=== PATIENT | male | born 1965 ===

== ENCOUNTER 2018-05-14 11:07 | Inpatient (IN) | payer MEDICAID, OTHER ==
--- NOTE | 2018-05-14 12:04 | C.PDOC ---
History Of Present Illness 52 y/o male with no known medical hx c/o right ear pain x 5 days with loss of hearing. pt has drainage from ear, initially bloody, now clear fluids. pr denies any trauma to ear. pt felt febrile earlier in the week, no fever now. pt taking an antibiotic (name unk) at home for a few days with no improvement. Time Seen by Provider: 05/14/18 11:18 Chief Complaint (Nursing): ENT Problem History Per: Patient History/Exam Limitations: None Onset/Duration Of Symptoms: Days (5) Current Symptoms Are (Timing): Worse Quality (Ear): Pain W/Touch, Discharge Quality (Mouth/Throat): denies: Tenderness, Swelling, Redness Severity: Moderate Anticoagulant/Antiplatlet Use?: No Past Medical History Reviewed: Historical Data, Nursing Documentation, Vital Signs Vital Signs: Last Vital Signs Temp 98 F 05/14/18 15:45 Pulse 54 L 05/14/18 15:45 Resp 18 05/14/18 15:45 BP 122/81 05/14/18 15:45 Pulse Ox 100 05/14/18 17:32 Family History: States: Unknown Family Hx - Social History Hx Alcohol Use: No Hx Substance Use: No - Immunization History Hx Tetanus Toxoid Vaccination: No Hx Influenza Vaccination: No Hx Pneumococcal Vaccination: No Review Of Systems Constitutional: Positive for: Fever (tactile) Eyes: Negative for: Pain ENT: Positive for: Ear Pain, Ear Discharge. Negative for: Nose Pain, Mouth Pain , Throat Pain Respiratory: Negative for: Cough, Shortness of Breath Skin: Negative for: Rash Neurological: Negative for: Weakness, Numbness Physical Exam - Physical Exam Appears: Non-toxic, No Acute Distress, Other (uncomfortable) Skin: Warm, Dry Head: Atraumatic, Normacephalic, No Tenderness (no mastoid tenderness) Ear(s): Left: Normal, Right: Other (erythema medial canal, clear discharge in canal, ?tm perforated, fluid seen on tm) Nose: Normal, No Discharge Oral Mucosa: Moist Tongue: Normal Appearing Lips: Normal Appearing Throat: No Erythema, No Exudate Neck: Supple Cardiovascular: Rhythm Regular, No Murmur Respiratory: No Decreased Breath Sounds ED Course And Treatment - Laboratory Results Result Diagrams: 05/14/18 12:19 05/14/18 12:19 O2 Sat by Pulse Oximetry: 100 - CT Scan/US temporal bone Other Rad Studies (CT/US): Read By Radiologist, Radiology Report Reviewed CT/US Interpretation: Right otomastoiditis without definite cholesteatoma appreciated. The right ossicular chain is intact. Limited coalescence of a few air cells within the right mastoid air cell complex is suggested superoposteriorly. The left temporal bone CT sections appear normal throughout. Medical Decision Making Medical Decision Makin y.o male with right ear pain, hearing loss, drainage x 5 days. message left for Dr Billings. discussed with Dr Billings; requesting temporal bone ct with and without contrast; will contact him when resulted. [address] Billings, pt to be admitted to medicine, and go to or tomorrow for tympanostomy. discussed with Dr Jacobs. Disposition Discussed With : Estiven Billings Doctor Will See Patient In The: Hospital Counseled Patient/Family Regarding: Studies Performed, Diagnosis, Need For Followup - Disposition Disposition: HOSPITALIZED Disposition Time: 17:27 Condition: STABLE - Clinical Impression Clinical Impression: Mastoiditis of right side, Otitis media of right ear
[2018-05-14 12:27] LABS: BASO # 0.1 K/uL (0.0-0.2); BASO % 0.9 % (0.0-2.0); EOS # 0.2 K/uL (0.0-0.7); EOS % 2.6 % (0.0-4.0); HEMOGLOBIN 13.9 g/dL (12.0-18.0); LYMPH # 2.5 K/uL (1.0-4.3); MEAN CELL VOLUME 90.9 fL (80.0-94.0); MEAN CORPUSCULAR HEMOGLOBIN 30.4 pg (27.0-31.0); MEAN CORPUSCULAR HGB CONC 33.4 g/dL (33.0-37.0); MEAN PLATELET VOLUME 7.8 fL (7.2-11.7); MONO # 0.9 K/uL (0.0-0.8); MONO % 9.4 % (0.0-10.0); NEUT # 5.3 K/uL (1.8-7.0); NEUT % 59.1 % (50.0-75.0); NRBC % 0.1 % (0.0-2.0); RBC 4.58 Mil/uL (4.40-5.90); RED CELL DISTRIBUTION WIDTH 14.1 % (11.5-14.5)
[2018-05-14 12:43] LABS: BLOOD UREA NITROGEN 16 mg/dL (9-20); CALCIUM 9.4 mg/dl (8.6-10.4); GFR AFRICAN-AMERICAN > 60; GFR NON-AFRICAN AMERICAN > 60
[2018-05-14] MEDS ORDERED: Iodixanol 320 MG/ML 100 ML BOTTLE IV ONE (13:04)
--- NOTE | 2018-05-14 14:22 | CT ---
PROCEDURE: CT OF THE TEMPORAL BONES WITHOUT CONTRAST HISTORY: right ear pain, drainage. loss of hearing COMPARISON: None available. TECHNIQUE: High resolution axial images of the temporal bones were obtained. Coronal and sagittal reformats were generated. Radiation dose: Total exam DLP = Visipaque 320, 100 cc mGy-cm. This CT exam was performed using one or more of the following dose reduction techniques: Automated exposure control, adjustment of the mA and/or kV according to patient size, and/or use of iterative reconstruction technique. FINDINGS: RIGHT TEMPORAL BONE: RIGHT MIDDLE EAR: There is near complete opacification of the middle ear cavity with the ossicular chain appearing intact nevertheless. The scutum is not eroded and cholesteatoma is not favored although fluid extends into the attic and through the added wrist at antrum and in to the mastoid air cell complex completely. Erosion of some of the right mastoid air cells is seen posterior superiorly. RIGHT INNER EAR: Cochlea: Normal. Semicircular canals: Normal. RIGHT MASTOID AIR CELLS: See middle year discussion above. RIGHT INTERNAL AUDITORY CANAL: Normal. RIGHT EXTERNAL AUDITORY CANAL: Normal. RIGHT VESTIBULAR AND COCHLEAR AQUEDUCT: Normal. OTHER FINDINGS: No definitive suspicious contrast enhancement appreciable. LEFT TEMPORAL BONE: LEFT MIDDLE EAR: Normal. LEFT INNER EAR: Cochlea: Normal. Semicircular canals: Normal. LEFT MASTOID AIR CELLS: Normal. LEFT INTERNAL AUDITORY CANAL: Normal. LEFT EXTERNAL AUDITORY CANAL: Normal. LEFT VESTIBULAR AND COCHLEAR AQUEDUCTS: Normal. OTHER FINDINGS: No suspicious contrast enhancement appreciable. IMPRESSION: Right otomastoiditis without definite cholesteatoma appreciated. The right ossicular chain is intact. Limited coalescence of a few air cells within the right mastoid air cell complex is suggested superoposteriorly. The left temporal bone CT sections appear normal throughout.
[2018-05-14] MEDS ORDERED: Clindamycin 600mg/50ml D5W 600 MG/50 ML VIAL IVPB SCH (14:45)
[2018-05-14] MEDS ORDERED: Clindamycin 600mg/50ml NS 600 MG/50 ML BAG IVPB ONE (14:51)
[2018-05-14] MEDS ORDERED: Clindamycin 600mg/50ml D5W 600 MG/50 ML VIAL IVPB STA (15:04)
[2018-05-14] MEDS ORDERED: metroNIDAZOLE IV 500 mg/100 ml 500 MG/100 ML BAG IVPB STA (17:26)
[2018-05-14] MEDS ORDERED: metroNIDAZOLE IV 500 mg/100 ml 500 MG/100 ML BAG ONE (17:56)
--- NOTE | 2018-05-14 18:04 | RAD ---
HISTORY: pre-op med clearance COMPARISON: None TECHNIQUE: Chest PA and lateral FINDINGS: LUNGS: No focal consolidation is seen. Bronchiectatic changes and scarring noted in the right lung apex. Mild right basilar atelectasis. PLEURA: Small right pleural effusion. CARDIOVASCULAR: Heart size is within normal limits.Atherosclerotic calcifications noted of the aorta. OSSEOUS STRUCTURES: Visualized osseous structures are unremarkable. VISUALIZED UPPER ABDOMEN: Unremarkable. OTHER FINDINGS: None. IMPRESSION: Mild right basilar atelectasis. Small right pleural effusion.
[2018-05-14 18:08] LABS: INR 1.2; PROTHROMBIN TIME 13.3 SECONDS (9.7-12.2)
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
[2018-05-14] MEDS ORDERED: Acetaminophen-Codeine 300/30 mg Tab PO PRN (18:30)
[2018-05-14] MEDS: Saccharomyces Boulardi 250 mg Cap PO SCH (20:11)
[2018-05-14] MEDS: Ciprofloxacin 400mg/200ml D5W 400 MG/200 ML BAG IVPB SCH (20:52)
--- NOTE | 2018-05-15 04:14 | CON ---
DATE: 05/14/2018 REASON FOR CONSULTATION: Mastoiditis, right. REQUESTING PHYSICIAN: Emergency room. HISTORY OF PRESENT ILLNESS: This is a 52-year-old male who for the past 5 days has been having right ear pain with hearing loss, constant, moderate in intensity. The patient also reports the drainage in the ear with some bleeding which happened 4 days ago. PAST MEDICAL HISTORY: As noted in the chart by me. MEDICATIONS: As noted in the chart by me. ALLERGIES: PENICILLIN. PHYSICAL EXAMINATION: HEAD: Atraumatic, normocephalic. FACE: Good facial movements bilaterally. CONSTITUTIONAL: Well fed, well nourished. COMMUNICATION: Communicates well and appropriately. EXTERNAL NOSE AND EARS: No masses. No lesions. No erythema. No edema. INTERNAL NOSE: Deviated septum. No masses. No lesions. No erythema. No edema. ORAL CAVITY AND OROPHARYNX: No masses. No lesions. No erythema. No edema. LIPS AND GUMS: No masses. No lesions. No erythema. No edema. EARS: There is a discharge in the right ear canal. The TM cannot be visualized. No canal edema or erythema noted. NECK: Supple. THYROID: No thyromegaly. No goiter. LYMPH NODES: No lymphadenopathy of the neck. LABORATORY DATA: CAT scan done was reviewed by me, the reading says that the patient has mastoiditis, which is coalescent. ASSESSMENT: Deviated septum and mastoiditis, acute, coalescent. PLAN: I spoke to Dr. gonzalez at [facility] in [place]. We decided that it will be best to admit the patient; start him on IV antibiotics, clindamycin and Flagyl; and he will be n.p.o. past midnight. I will do a right myringotomy tube tomorrow morning to drain the ear. On Thursday, we will reevaluate. If the patient still has pain that is not improving, then I will speak with Dr. Gonzalez again and consider transferring him for mastoidectomy. Estiven Billings MD MTDMercy
[2018-05-15 07:10] LABS: BASO # 0.1 K/uL (0.0-0.2); BASO % 1.5 % (0.0-2.0); EOS # 0.2 K/uL (0.0-0.7); EOS % 3.4 % (0.0-4.0); HEMOGLOBIN 13.7 g/dL (12.0-18.0); LYMPH # 2.2 K/uL (1.0-4.3); LYMPH % 29.9 % (20.0-40.0); MEAN CELL VOLUME 90.5 fL (80.0-94.0); MEAN CORPUSCULAR HGB CONC 34.2 g/dL (33.0-37.0); MEAN PLATELET VOLUME 8.1 fL (7.2-11.7); MONO # 0.6 K/uL (0.0-0.8); MONO % 7.9 % (0.0-10.0); NEUT # 4.2 K/uL (1.8-7.0); NEUT % 57.3 % (50.0-75.0); RBC 4.43 Mil/uL (4.40-5.90); RED CELL DISTRIBUTION WIDTH 14.3 % (11.5-14.5); WHITE BLOOD COUNT 7.3 K/uL (4.8-10.8)
[2018-05-15] MEDS ORDERED: Ofloxacin 0.3% Ophth Soln ONE (07:30)
[2018-05-15 07:31] LABS: BLOOD UREA NITROGEN 15 mg/dL (9-20); CALCIUM 9.1 mg/dl (8.6-10.4); GFR AFRICAN-AMERICAN > 60; GFR NON-AFRICAN AMERICAN > 60
[2018-05-15] MEDS ORDERED: Oxymetazoline 0.05% Nasal Spray (30 ml) NS ONE (07:32)
[2018-05-15] MEDS ORDERED: Propofol 10 mg/ml Inj (20 ML) ONE (07:39)
[2018-05-15] MEDS: Ciprofloxacin 400mg/200ml D5W 400 MG/200 ML BAG IVPB SCH ×3 (08:43→19:41)
[2018-05-15] MEDS: Saccharomyces Boulardi 250 mg Cap PO SCH ×2 (09:44→17:07)
--- NOTE | 2018-05-15 14:32 | CP.PCM.PN ---
Subjective - Date & Time of Evaluation Date of Evaluation: 05/15/18 Time of Evaluation: 07:00 - Subjective Subjective: PGY2- Progress Note for Dr. Jacobs Patient seen and examined at bedside and in no acute distress. Patient is s/p myringotomy tube placement by Dr. Billings. Patient says he is not having any pain in the ear. Patient does admit to a lot of drainage from the ear. Patient denies any headache, shortness of breath, chest pain, abdominal pain, nausea, vomiting, constipation, or diarrhea. Objective - Vital Signs/Intake and Output Vital Signs (last 24 hours): Temp Pulse Resp BP Pulse Ox 98.8 F 56 L 15 109/76 98 05/15/18 08:45 05/15/18 08:45 05/15/18 08:45 05/15/18 08:45 05/15/18 10:06 Intake and Output: 05/15/18 05/15/18 06:59 18:59 Intake Total 600 150 Balance 600 150 - Medications Medications: Current Medications Acetaminophen (Tylenol 325mg Tab) 650 mg PO Q12H PRN PRN Reason: Fever >100.4 F Acetaminophen/Codeine Phosphate (Tylenol/Codeine 300 Mg/30 Mg) 1 ea PO Q6H PRN PRN Reason: Pain, severe (8-10) Ciprofloxacin (Cipro 400mg/200ml Dsw) 400 mg in 200 mls @ 133 mls/hr IVPB Q12H BUBBA PRN Reason: Protocol Last Admin: 05/15/18 09:46 Dose: 133 mls/hr Clindamycin Phosphate 900 mg/ (Sodium Chloride) 106 mls @ 106 mls/hr IVPB Q8H BUBBA PRN Reason: Protocol Last Admin: 05/15/18 14:11 Dose: 106 mls/hr Pneumococcal Polyvalent Vaccine (Pneumovax 23 Vaccine) 0.5 ml IM .ONCE ONE Stop: 05/16/18 10:01 Saccharomyces Boulardii (Florastor) 250 mg PO BID [facility] Last Admin: 05/15/18 09:44 Dose: 250 mg - Labs Labs: 05/15/18 07:00 05/15/18 07:00 PT 13.3 SECONDS (9.7-12.2) H 05/14/18 17:53 INR 1.2 05/14/18 17:53 APTT 34 SECONDS (21-34) 05/14/18 17:53 - Constitutional Appears: Non-toxic, No Acute Distress - Head Exam Head Exam: ATRAUMATIC, NORMAL INSPECTION, NORMOCEPHALIC - Eye Exam Eye Exam: EOMI, Normal appearance - ENT Exam ENT Exam: Mucous Membranes Moist Additional comments: ear discharge - Respiratory Exam Respiratory Exam: Clear to Ausculation Bilateral, NORMAL BREATHING PATTERN - Cardiovascular Exam Cardiovascular Exam: REGULAR RHYTHM, RRR, +S1, +S2 - GI/Abdominal Exam GI & Abdominal Exam: Soft, Normal Bowel Sounds. absent: Tenderness - Extremities Exam Extremities Exam: Normal Inspection. absent: Pedal Edema, Tenderness - Neurological Exam Neurological Exam: Alert, Awake, Oriented x3 - Psychiatric Exam Psychiatric exam: Normal Affect, Normal Mood - Skin Skin Exam: Intact, Normal Color, Warm Assessment and Plan - Assessment and Plan (Free Text) Assessment: (1) Mastoiditis of right side Assessment and Plan: ENT consult, Dr Billings * s/p tympanostomy 05/15 ID consult, Dr Mathews - need help with tailoring abx discharge meds Imaging: CT internal auditory canal: * Right otomastoiditis without definite cholesteatoma appreciated. The right ossicular chain is intact. Limited coalescence of a few air cells within the right mastoid air cell complex is suggested superoposteriorly. The left temporal bone CT sections appear normal throughout. CXR pre-op: * Mild right basilar atelectasis. Small right pleural effusion. Meds: Tylenol 650mg q12h prn for fever Tylenol/codeine 1 tab po q6h prn for severe pain Clindamycin 600mg IVPB q8h Cipro 400mg q12h Florastor 250mg po bid Status: Acute (2) Otitis media of right ear Assessment and Plan: See plan for otomastoiditis above Status: Acute Priority: High (3) Prophylactic measure Assessment and Plan: SCDs GI prophylaxis not indicated Status: Acute Priority: Low
--- NOTE | 2018-05-15 19:37 | OP ---
PROCEDURE DATE: 05/15/2018 PREOPERATIVE DIAGNOSIS: Right mastoiditis. POSTOPERATIVE DIAGNOSIS: Right mastoiditis. PROCEDURE: Right myringotomy with tubes. SIGNIFICANT FINDINGS: Fluid noted behind the TM. DESCRIPTION OF PROCEDURE: The patient was brought into the room, placed in supine position. Anesthesia was initiated through facemask. The head was turned. The patient was draped in the usual manner. The right ear was brought into view using operative microscope and ear speculum. Radial incision was made in the anterior inferior quadrant of the TM. Fluid was noted behind the TM and suctioned out and sent for culture. Tube was placed. Floxin was placed. The patient was taken off the anesthesia and taken to the recovery room in stable manner. Estiven Billings MD MTDD
[2018-05-16] MEDS: Ciprofloxacin 400mg/200ml D5W 400 MG/200 ML BAG IVPB SCH ×2 (07:54→19:39)
[2018-05-16 08:10] LABS: BASO # 0.1 K/uL (0.0-0.2); BASO % 0.7 % (0.0-2.0); EOS # 0.2 K/uL (0.0-0.7); EOS % 3.1 % (0.0-4.0); HEMOGLOBIN 14.1 g/dL (12.0-18.0); LYMPH # 1.9 K/uL (1.0-4.3); LYMPH % 24.7 % (20.0-40.0); MEAN CELL VOLUME 90.3 fL (80.0-94.0); MEAN CORPUSCULAR HEMOGLOBIN 30.3 pg (27.0-31.0); MEAN CORPUSCULAR HGB CONC 33.6 g/dL (33.0-37.0); MEAN PLATELET VOLUME 8.2 fL (7.2-11.7); MONO # 0.5 K/uL (0.0-0.8); MONO % 6.7 % (0.0-10.0); NEUT # 5.1 K/uL (1.8-7.0); NEUT % 64.8 % (50.0-75.0); RBC 4.66 Mil/uL (4.40-5.90); RED CELL DISTRIBUTION WIDTH 14.1 % (11.5-14.5); WHITE BLOOD COUNT 7.9 K/uL (4.8-10.8)
[2018-05-16 08:33] LABS: BLOOD UREA NITROGEN 14 mg/dL (9-20); CALCIUM 9.3 mg/dl (8.6-10.4); GFR AFRICAN-AMERICAN > 60; GFR NON-AFRICAN AMERICAN > 60
[2018-05-16 08:36] VITALS: RESP 20
[2018-05-16] MEDS: Saccharomyces Boulardi 250 mg Cap PO SCH ×2 (09:58→17:15)
[2018-05-16] MEDS ORDERED: Pneumococcal 23-Valent Vaccine IM ONE (10:00)
--- NOTE | 2018-05-16 13:47 | CP.PCM.CON ---
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 Patient stated he's had right sided ear infections in the past, especially in his youth, which self-resolved or resolved with abx. He said 5 days ago he woke up with sharp pain and later that day he noticed some clear liquid draining from his right ear. The following day he noticed a small amount of blood. The pain has become progressively worse now 10/10. He also said he had decreased hearing in the right ear and tinnitus. Denied dizziness, disequilibrium, n/v, neck pain, eye abnormalities, mouth pain. ID CONSULTED FOR ANTIBIOTIC MANAGEMENT pT IS S/P MYRINGOTOMY WITH TUBE PLACEMENT - DENIES FEVER OR PAIN PMHx: denies PSHx: denies Allergies: Patient stated he was told by his parents he has a PCN allergy but he has never actually taken PCN thus cannot confirm (he stated he probably does not have a PCN allergy) Home Meds: none FamHx: denies SocialHx: non-smoker, never smoked, social alcohol use, lives with girlfriend, currently not working, no illicit drugs Review of Systems - Review of Systems All systems: reviewed and no additional remarkable complaints except - Constitutional Constitutional: As Per HPI - EENT Eyes: absent: As Per HPI, Blind Spots, Blurred Vision, Change in Vision, Decreased Night Vision, Diplopia, Discharge, Dry Eye, Exophthalmos, Floaters, Irritation, Itchy Eyes, Loss of Peripheral Vision, Pain, Photophobia, Requires Corrective Lenses, Sees Flashes, Spots in Vision, Tunnel Vision, Other Visual Disturbances, Loss of Vision, Other Ears: As Per HPI Nose/Mouth/Throat: absent: As Per HPI, Epistaxis, Nasal Congestion, Nasal Discharge, Nasal Obstruction, Nasal Trauma, Nose Pain, Post Nasal Drip, Sinus Pain, Sinus Pressure, Bleeding Gums, Change in Voice, Dental Pain, Dry Mouth, Dysphagia, Halitosis, Hoarsness, Lip Swelling, Mouth Lesions, Mouth Pain, Odynophagia, Sore Throat, Throat Swelling, Tongue Swelling, Facial Pain, Neck Pain, Neck Mass, Other - Cardiovascular Cardiovascular: absent: As Per HPI, Acrocyanosis, Chest Pain, Chest Pain at Rest , Chest Pain with Activity, Claudication, Diaphoresis, Dyspnea, Dyspnea on Exertion, Edema, Irregular Heart Rhythm, Pain Radiating to Arm/Neck/Jaw, Leg Edema, Leg Ulcers, Lightheadedness, Orthopnea, Palpitations, Paroxysmal Nocturnal Dyspnea, Pedal Edema, Radiating Pain, Rapid Heart Rate, Slow Heart Rate, Syncope, Other - Respiratory Respiratory: absent: As Per HPI, Cough, Dyspnea, Hemoptysis, Dyspnea on Exertion , Wheezing, Snoring, Stridor, Pain on Inspiration, Chest Congestion, Excessive Mucous Production, Change in Mucous Color, Pain with Coughing, Other - Gastrointestinal Gastrointestinal: absent: As Per HPI, Abdominal Pain, Belching, Bloating, Change in Bowel Habits, Change in Stool Character, Coffee Ground Emesis, Constipation, Cramping, Diarrhea, Dyspepsia, Dysphagia, Early Satiety, Excessive Flatus, Fecal Incontinence, Heartburn, Hematemesis, Hematochezia, Loose Stools, Melena, Nausea, Odynophagia, Temesmus, Vomiting, Other - Genitourinary Genitourinary: absent: As Per HPI, Change in Urinary Stream, Difficulty Urinating, Dysuria, Flank Pain, Hematuria, Pyuria, Nocturia, Urinary Incontinence, Urinary Frequency, Urinary Hesitance, Urinary Urgency, Voiding Freq/Small Amts, Freq UTI, Hx Renal/Bladder Calculi, Hx /Renal Surgery, Bladder Distension, Other - Musculoskeletal Musculoskeletal: absent: As Per HPI, Abnormal Gait, Arthralgias, Atrophy, Back Pain, Deformity, Joint Swelling, Limited Range of Motion, Loss of Height, Muscle Cramps, Muscle Weakness, Myalgias, Neck Pain, Numbness, Radiating Pain into Limb, Stiffness, Tingling, Other - Neurological Neurological: absent: As Per HPI, Abnormal Gait, Abnormal Hearing, Abnormal Movements, Abnormal Speech, Behavioral Changes, Burning Sensations, Confusion, Convulsions, Disequilibrium, Dizziness, Numbness, Focal Weakness, Frequent Falls , Headaches, Lack of Coordination, Loss of Vision, Memory Loss, Paresthesias, Radicular Pain, Restless Legs, Sensory Deficit, Syncope, Tingling, Tremor, Vertigo, Weakness, Other Visual Disturbances, Other - Psychiatric Psychiatric: absent: As Per HPI, Abnormal Sleep Pattern, Anhedonia, Anxiety, Auditory Hallucinations, Behavioral Changes, Change in Appetite, Change in Libido, Confusion, Depression, Difficulty Concentrating, Hallucinations, Homicidal Ideation, Hopelessness, Irritability, Memory Loss, Mood Swings, Panic Attacks, Paranoia, Suicidal Ideation, Visual Hallucinations, Tactile Hallucinations, Other - Endocrine Endocrine: absent: As Per HPI, Change in Body Appearance, Change in Libido, Cold Intolorance, Deepening of Voice, Excessive Sweating, Fatigue, Flushing, Heat Intolorance, Increase in Ring/Shoe/Hat Size, Palpitations, Polydipsia, Polyphagia, Polyuria, Other - Hematologic/Lymphatic Hematologic: absent: As Per HPI, Easy Bleeding, Easy Bruising, Lymphadenopathy, Other Past Patient History - Past Medical History & Family History Past Medical History?: Yes - Past Social History Smoking Status: Never Smoked - CARDIAC Hx Cardiac Disorders: No - PULMONARY Hx Respiratory Disorders: No - NEUROLOGICAL Hx Neurological Disorder: No - HEENT Hx HEENT Problems: No Other/Comment: wears glasses - RENAL Hx Chronic Kidney Disease: No - ENDOCRINE/METABOLIC Hx Endocrine Disorders: No - HEMATOLOGICAL/ONCOLOGICAL Hx Blood Disorders: No - INTEGUMENTARY Hx Dermatological Problems: No - MUSCULOSKELETAL/RHEUMATOLOGICAL Hx Musculoskeletal Disorders: No Hx Falls: No - GASTROINTESTINAL Hx Gastrointestinal Disorders: No - GENITOURINARY/GYNECOLOGICAL Hx Genitourinary Disorders: No - PSYCHIATRIC Hx Psychophysiologic Disorder: No Hx Substance Use: No - SURGICAL HISTORY Hx Surgeries: No - ANESTHESIA Hx Anesthesia: No Meds Allergies/Adverse Reactions: Allergies Allergy/AdvReac Type Severity Reaction Status Date / Time Penicillins Allergy Verified 05/14/18 11:14 - Medications Medications: Current Medications Acetaminophen (Tylenol 325mg Tab) 650 mg PO Q12H PRN PRN Reason: Fever >100.4 F Acetaminophen/Codeine Phosphate (Tylenol/Codeine 300 Mg/30 Mg) 1 ea PO Q6H PRN PRN Reason: Pain, severe (8-10) Ciprofloxacin (Cipro 400mg/200ml Dsw) 400 mg in 200 mls @ 133 mls/hr IVPB Q12H BUBBA PRN Reason: Protocol Last Admin: 05/16/18 07:54 Dose: 133 mls/hr Clindamycin Phosphate 900 mg/ (Sodium Chloride) 106 mls @ 106 mls/hr IVPB Q8H BUBBA PRN Reason: Protocol Last Admin: 05/16/18 06:00 Dose: 106 mls/hr Saccharomyces Boulardii (Florastor) 250 mg PO BID BUBBA Last Admin: 05/16/18 09:58 Dose: 250 mg Physical Exam - Constitutional Appears: Non-toxic, Chronically Ill - Head Exam Head Exam: NORMOCEPHALIC - Eye Exam Eye Exam: absent: Scleral icterus - ENT Exam ENT Exam: Mucous Membranes Dry, Normal Oropharynx - Neck Exam Neck exam: Negative for: Lymphadenopathy - Respiratory Exam Respiratory Exam: Decreased Breath Sounds - Cardiovascular Exam Cardiovascular Exam: REGULAR RHYTHM - GI/Abdominal Exam GI & Abdominal Exam: Diminished Bowel Sounds, Soft. absent: Tenderness - Rectal Exam Rectal Exam: Deferred - Exam Exam: NORMAL INSPECTION - Extremities Exam Extremities exam: Negative for: pedal edema - Back Exam Back exam: absent: CVA tenderness (L), CVA tenderness (R) - Neurological Exam Neurological exam: Alert, CN II-XII Intact, Oriented x3, Reflexes Normal - Psychiatric Exam Psychiatric exam: Normal Mood - Skin Skin Exam: Dry Results - Vital Signs Recent Vital Signs: Last Vital Signs Temp 97.9 F 05/16/18 08:35 Pulse 60 05/16/18 08:35 Resp 20 05/16/18 08:35 BP 127/79 05/16/18 08:35 Pulse Ox 98 05/16/18 08:35 - Labs Result Diagrams: 05/16/18 07:59 05/16/18 07:59 Labs: Laboratory Results - last 24 hr 05/16/18 05/16/18 07:59 07:59 WBC 7.9 RBC 4.66 Hgb 14.1 Hct 42.1 MCV 90.3 MCH 30.3 MCHC 33.6 RDW 14.1 Plt Count 350 MPV 8.2 Neut % (Auto) 64.8 Lymph % (Auto) 24.7 [place] % (Auto) 6.7 Eos % (Auto) 3.1 Baso % (Auto) 0.7 Neut # (Auto) 5.1 Lymph # (Auto) 1.9 [place] # (Auto) 0.5 Eos # (Auto) 0.2 Baso # (Auto) 0.1 Sodium 139 Potassium 4.6 Chloride 104 Carbon Dioxide 28 Anion Gap 13 BUN 14 Creatinine 0.8 Est GFR ( Amer) > 60 Est GFR (Non-Af Amer) > 60 Random Glucose 104 Calcium 9.3 Assessment & Plan (1) Mastoiditis of right side Status: Acute (2) Otitis media of right ear Status: Acute Priority: High - Assessment and Plan (Free Text) Assessment: CONT IV THEN PO ANTIBIOTICS FOR ACUTE MASTOIIDITIS / OTITIS MEDIA AVOID PCN UNLESS TESTED FOR ALLERGY FOLLOW UP WITH DR JASON
--- NOTE | 2018-05-16 15:15 | CP.PCM.PN ---
<Denise Regan - Last Filed: 05/16/18 15:12> Subjective - Date & Time of Evaluation Date of Evaluation: 05/16/18 Time of Evaluation: 07:00 - Subjective Subjective: PGY2- Progress Note for Dr. Urrutia Patient seen and examined at bedside and in no acute distress. Patient is pod 1 s/p myringotomy tube placement by Dr. Billings. Patient says he is not having any pain in the ear and feels much better. Patient is still having drainage from the ear. Patient admits to decreased hearing from the right ear and a whistling noise in the ear. Patient denies any headache, shortness of breath, chest pain, abdominal pain, nausea, vomiting, constipation, or diarrhea. Objective - Vital Signs/Intake and Output Vital Signs (last 24 hours): Temp Pulse Resp BP Pulse Ox 97.9 F 60 20 127/79 98 05/16/18 08:35 05/16/18 08:35 05/16/18 08:35 05/16/18 08:35 05/16/18 08:35 Intake and Output: 05/16/18 05/16/18 06:59 18:59 Intake Total 786 780 Output Total 900 300 Balance -114 480 - Medications Medications: Current Medications Acetaminophen (Tylenol 325mg Tab) 650 mg PO Q12H PRN PRN Reason: Fever >100.4 F Acetaminophen/Codeine Phosphate (Tylenol/Codeine 300 Mg/30 Mg) 1 ea PO Q6H PRN PRN Reason: Pain, severe (8-10) Ciprofloxacin (Cipro 400mg/200ml Dsw) 400 mg in 200 mls @ 133 mls/hr IVPB Q12H BUBBA PRN Reason: Protocol Last Admin: 05/16/18 07:54 Dose: 133 mls/hr Clindamycin Phosphate 900 mg/ (Sodium Chloride) 106 mls @ 106 mls/hr IVPB Q8H BUBBA PRN Reason: Protocol Last Admin: 05/16/18 14:41 Dose: 106 mls/hr Saccharomyces Boulardii (Florastor) 250 mg PO BID BUBBA Last Admin: 05/16/18 09:58 Dose: 250 mg - Labs Labs: 05/16/18 07:59 05/16/18 07:59 PT 13.3 SECONDS (9.7-12.2) H 05/14/18 17:53 INR 1.2 05/14/18 17:53 APTT 34 SECONDS (21-34) 05/14/18 17:53 - Additional Findings Additional findings: - Constitutional Appears: Non-toxic, No Acute Distress - Head Exam Head Exam: ATRAUMATIC, NORMAL INSPECTION, NORMOCEPHALIC - Eye Exam Eye Exam: EOMI, Normal appearance - ENT Exam ENT Exam: Mucous Membranes Moist Additional comments: ear discharge - Respiratory Exam Respiratory Exam: Clear to Ausculation Bilateral, NORMAL BREATHING PATTERN - Cardiovascular Exam Cardiovascular Exam: REGULAR RHYTHM, RRR, +S1, +S2 - GI/Abdominal Exam GI & Abdominal Exam: Soft, Normal Bowel Sounds. absent: Tenderness - Extremities Exam Extremities Exam: Normal Inspection. absent: Pedal Edema, Tenderness - Neurological Exam Neurological Exam: Alert, Awake, Oriented x3 - Psychiatric Exam Psychiatric exam: Normal Affect, Normal Mood - Skin Skin Exam: Intact, Normal Color, Warm Assessment and Plan - Assessment and Plan (Free Text) Assessment: (1) Mastoiditis of right side Assessment and Plan: ENT consult, Dr Billings * s/p tympanostomy 05/15 * culture from ear- no growth for 24 hours ID consult, Dr Mathews - need help with tailoring abx discharge meds Imaging: CT internal auditory canal: * Right otomastoiditis without definite cholesteatoma appreciated. The right ossicular chain is intact. Limited coalescence of a few air cells within the right mastoid air cell complex is suggested superoposteriorly. The left temporal bone CT sections appear normal throughout. CXR pre-op: * Mild right basilar atelectasis. Small right pleural effusion. Meds: Tylenol 650mg q12h prn for fever Tylenol/codeine 1 tab po q6h prn for severe pain Clindamycin 600mg IVPB q8h Cipro 400mg q12h Florastor 250mg po bid patient to be switched to po antibiotics upon discharge Status: Acute (2) Otitis media of right ear Assessment and Plan: See plan for otomastoiditis above Status: Acute Priority: High (3) Prophylactic measure Assessment and Plan: SCDs GI prophylaxis not indicated Status: Acute Priority: Low <Marlene Urrutia V - Last Filed: 05/16/18 16:46> Objective - Vital Signs/Intake and Output Vital Signs (last 24 hours): Temp Pulse Resp BP Pulse Ox 97.9 F 62 20 136/88 99 05/16/18 16:00 05/16/18 16:00 05/16/18 16:00 05/16/18 16:00 05/16/18 16:00 Intake and Output: 05/16/18 05/16/18 06:59 18:59 Intake Total 786 780 Output Total 900 300 Balance -114 480 - Medications Medications: Current Medications Acetaminophen (Tylenol 325mg Tab) 650 mg PO Q12H PRN PRN Reason: Fever >100.4 F Acetaminophen/Codeine Phosphate (Tylenol/Codeine 300 Mg/30 Mg) 1 ea PO Q6H PRN PRN Reason: Pain, severe (8-10) Ciprofloxacin (Cipro 400mg/200ml Dsw) 400 mg in 200 mls @ 133 mls/hr IVPB Q12H BUBBA PRN Reason: Protocol Last Admin: 05/16/18 07:54 Dose: 133 mls/hr Clindamycin Phosphate 900 mg/ (Sodium Chloride) 106 mls @ 106 mls/hr IVPB Q8H BUBBA PRN Reason: Protocol Last Admin: 05/16/18 14:41 Dose: 106 mls/hr Saccharomyces Boulardii (Florastor) 250 mg PO BID BUBBA Last Admin: 05/16/18 09:58 Dose: 250 mg - Labs Labs: 05/16/18 07:59 05/16/18 07:59 PT 13.3 SECONDS (9.7-12.2) H 05/14/18 17:53 INR 1.2 05/14/18 17:53 APTT 34 SECONDS (21-34) 05/14/18 17:53 Attending/Attestation - Attestation I have personally seen and examined this patient.: Yes I have fully participated in the care of the patient.: Yes I have reviewed all pertinent clinical information, including history, physical exam and plan: Yes Notes (Text): Patient seen, examined, and case discussed with esthetician and manager medical spa. Patient is status post myringtomy postoperative day 1. Patient reports continued drainage from the right ear. Patient denies any ear pain nor jaw pain. Patient remains afebrile since admission. Patient does not have any elevated white count. Patient has been on Cipro 400 IV every 12 and clindamycin 900 mg IV every 8 since May 14. Patient to be reevaluated by ENT in the morning for possibility of a mastoidectomy pain did not improve. Assessment/Plan (1) Acute mastoiditis of right side Assessment and Plan: * ENT consult, Dr Billings, on consult help appreciated * ID consult, Dr Mathews, on consult help appreciated Imaging: * CT internal auditory canal: Right otomastoiditis without definite cholesteatoma appreciated. The right ossicular chain is intact. Limited coalescence of a few air cells within the right mastoid air cell complex is suggested superoposteriorly. The left temporal bone CT sections appear normal throughout. CXR pre-op: * Mild right basilar atelectasis. Small right pleural effusion. * Operative Note (05/15/18): Right myringotomy with tubes: significant finding: fluid noted behind TM Meds: * Tylenol 650mg q12h prn for fever * Tylenol/codeine 1 tab po q6h prn for severe pain * Clindamycin 900mg IVPB q8h (active since 05/14/2018) * Ciprofloxacin 400 mg IV every 12 hours (active since 05/14/2018) * Florastor 250mg po bid Status: Acute (2) Otitis media of right ear Assessment and Plan: * See plan for otomastoiditis above Status: Acute Priority: High (3) Prophylactic measure Assessment and Plan: * SCDs * GI prophylaxis not indicated Status: Acute Priority: Low Disposition: pending re-evaluation by ENT in the morning. Patient is on IV abx at this time.
[2018-05-17 07:35] LABS: BASO # 0.1 K/uL (0.0-0.2); BASO % 0.7 % (0.0-2.0); EOS # 0.2 K/uL (0.0-0.7); HEMOGLOBIN 13.9 g/dL (12.0-18.0); LYMPH # 1.7 K/uL (1.0-4.3); LYMPH % 23.4 % (20.0-40.0); MEAN CELL VOLUME 90.7 fL (80.0-94.0); MEAN CORPUSCULAR HEMOGLOBIN 30.6 pg (27.0-31.0); MEAN CORPUSCULAR HGB CONC 33.7 g/dL (33.0-37.0); MEAN PLATELET VOLUME 8.2 fL (7.2-11.7); MONO # 0.5 K/uL (0.0-0.8); MONO % 7.3 % (0.0-10.0); NEUT # 4.9 K/uL (1.8-7.0); NEUT % 65.6 % (50.0-75.0); RBC 4.56 Mil/uL (4.40-5.90); WHITE BLOOD COUNT 7.4 K/uL (4.8-10.8)
[2018-05-17 07:38] LABS: ALB/GLOB RATIO 1.1 (1.0-2.1); ALBUMIN 3.9 g/dL (3.5-5.0); ALT/SGPT 27 U/L (21-72); AST/SGOT 28 U/L (17-59); BLOOD UREA NITROGEN 15 mg/dL (9-20); CALCIUM 9.6 mg/dl (8.6-10.4); GFR AFRICAN-AMERICAN > 60; GFR NON-AFRICAN AMERICAN > 60
[2018-05-17] MEDS: Ciprofloxacin 400mg/200ml D5W 400 MG/200 ML BAG IVPB SCH (07:57)
--- NOTE | 2018-05-17 08:40 | CP.PCM.PN ---
Subjective - Date & Time of Evaluation Date of Evaluation: 05/17/18 Time of Evaluation: 08:37 - Subjective Subjective: no ear pain, hearing loss on right. Ear discarge on right ears: d/c noted on the right, no preauricular edema or erythema a/p: mastoiditis improving pain ok to d/c home from ENT point f/u Dr. Ramos [phone] Objective - Vital Signs/Intake and Output Vital Signs (last 24 hours): Temp Pulse Resp BP Pulse Ox 98.0 F 67 20 126/83 96 05/17/18 07:19 05/17/18 07:19 05/17/18 07:19 05/17/18 07:19 05/17/18 07:19 Intake and Output: 05/17/18 05/17/18 06:59 18:59 Intake Total 660 340 Output Total 800 Balance -140 340 - Medications Medications: Current Medications Acetaminophen (Tylenol 325mg Tab) 650 mg PO Q12H PRN PRN Reason: Fever >100.4 F Last Admin: 05/16/18 19:46 Dose: 650 mg Acetaminophen/Codeine Phosphate (Tylenol/Codeine 300 Mg/30 Mg) 1 ea PO Q6H PRN PRN Reason: Pain, severe (8-10) Ciprofloxacin (Cipro 400mg/200ml Dsw) 400 mg in 200 mls @ 133 mls/hr IVPB Q12H BUBBA PRN Reason: Protocol Last Admin: 05/17/18 07:57 Dose: 133 mls/hr Clindamycin Phosphate 900 mg/ (Sodium Chloride) 106 mls @ 106 mls/hr IVPB Q8H BUBBA PRN Reason: Protocol Last Admin: 05/17/18 06:00 Dose: 106 mls/hr Saccharomyces Boulardii (Florastor) 250 mg PO BID BUBBA Last Admin: 05/16/18 17:15 Dose: 250 mg - Labs Labs: 05/17/18 07:16 05/17/18 07:16 PT 13.3 SECONDS (9.7-12.2) H 05/14/18 17:53 INR 1.2 05/14/18 17:53 APTT 34 SECONDS (21-34) 05/14/18 17:53
[2018-05-17] MEDS: Saccharomyces Boulardi 250 mg Cap PO SCH ×2 (11:20→17:48)
--- NOTE | 2018-05-17 11:43 | CP.PCM.PN ---
Subjective - Date & Time of Evaluation Date of Evaluation: 05/17/18 Time of Evaluation: 11:40 - Subjective Subjective: Medical Attending Note: Patient seen and examined this morning. Patient reports he is feeling better. He denies fever, denies chills, denies chest pain, denies shortness of breathe, denies nausea, denies vomitting, reports he is moving his bowels, denies pain, reports drainage from the ears. I discussed case with ENT this morning, patient is stable from their standpoint for discharge. Recommend to f/u outpatient. I discussed case with Infectious Disease, who recommends to complete total 14 day course of Clindamycin 300mg PO QID and will need follow-up with ENT. Objective - Vital Signs/Intake and Output Vital Signs (last 24 hours): Temp Pulse Resp BP Pulse Ox 98.0 F 67 20 126/83 96 05/17/18 07:19 05/17/18 07:19 05/17/18 07:19 05/17/18 07:19 05/17/18 07:19 Intake and Output: 05/17/18 05/17/18 06:59 18:59 Intake Total 660 340 Output Total 800 Balance -140 340 - Medications Medications: Current Medications Acetaminophen (Tylenol 325mg Tab) 650 mg PO Q12H PRN PRN Reason: Fever >100.4 F Last Admin: 05/16/18 19:46 Dose: 650 mg Acetaminophen/Codeine Phosphate (Tylenol/Codeine 300 Mg/30 Mg) 1 ea PO Q6H PRN PRN Reason: Pain, severe (8-10) Ciprofloxacin (Cipro 400mg/200ml Dsw) 400 mg in 200 mls @ 133 mls/hr IVPB Q12H BUBBA PRN Reason: Protocol Last Admin: 05/17/18 07:57 Dose: 133 mls/hr Clindamycin Phosphate 900 mg/ (Sodium Chloride) 106 mls @ 106 mls/hr IVPB Q8H BUBBA PRN Reason: Protocol Last Admin: 05/17/18 06:00 Dose: 106 mls/hr Saccharomyces Boulardii (Florastor) 250 mg PO BID BUBBA Last Admin: 05/17/18 11:20 Dose: 250 mg - Labs Labs: 05/17/18 07:16 05/17/18 07:16 PT 13.3 SECONDS (9.7-12.2) H 06/29/18 17:53 INR 1.2 05/14/18 17:53 APTT 34 SECONDS (21-34) 05/14/18 17:53 - Constitutional Appears: Non-toxic, No Acute Distress - Head Exam Head Exam: NORMAL INSPECTION - Eye Exam Eye Exam: EOMI - ENT Exam ENT Exam: Mucous Membranes Moist - Respiratory Exam Respiratory Exam: Clear to Ausculation Bilateral, NORMAL BREATHING PATTERN. absent: Rales, Rhonchi, Wheezes - Cardiovascular Exam Cardiovascular Exam: REGULAR RHYTHM, +S1, +S2. absent: RRR, Rubs - GI/Abdominal Exam GI & Abdominal Exam: Soft, Normal Bowel Sounds. absent: Distended, Firm, Guarding, Rigid, Tenderness, Rebound - Extremities Exam Extremities Exam: absent: Pedal Edema, Tenderness - Neurological Exam Neurological Exam: Alert, Awake, Oriented x3 Neuro motor strength exam: Left Upper Extremity: 5, Right Upper Extremity: 5, Left Lower Extremity: 5, Right Lower Extremity: 5 - Psychiatric Exam Psychiatric exam: Normal Affect, Normal Mood - Skin Skin Exam: Dry, Intact, Normal Color, Warm Assessment and Plan (1) Mastoiditis of right side Assessment & Plan: Assessment and Plan: * ENT consult, Dr Billings, on consult help appreciated * ID consult, Dr Mathews, on consult help appreciated Imaging: * CT internal auditory canal: Right otomastoiditis without definite cholesteatoma appreciated. The right ossicular chain is intact. Limited coalescence of a few air cells within the right mastoid air cell complex is suggested superoposteriorly. The left temporal bone CT sections appear normal throughout. CXR pre-op: * Mild right basilar atelectasis. Small right pleural effusion. * Operative Note (05/15/18): Right myringotomy with tubes: significant finding: fluid noted behind TM Meds: * Tylenol 650mg q12h prn for fever * Tylenol/codeine 1 tab po q6h prn for severe pain * Clindamycin 900mg IVPB q8h (active since 05/14/2018) * Ciprofloxacin 400 mg IV every 12 hours (active since 05/14/2018) * Florastor 250mg po bid Upon discharge: 1) Clindamycin 300mg PO QID (40 tabs/0 refills) 2) Bacid 1 tab PO daily (30 days/0) Patient recommended to establish care at the [facility] in [place] ([phone]) or in [place] ([phone]) and to follow-up ENT as outpatient. Patient recommend home from ENT point (ENT: Dr. Ramos ). If patient has pain over the ear,to come be evaluated by ENT and emergency room.. Status: Acute (2) Otitis media of right ear Status: Acute (3) Prophylactic measure Status: Acute
--- NOTE | 2018-05-17 11:48 | CP.PCM.PN ---
Subjective - Date & Time of Evaluation Date of Evaluation: 05/17/18 Time of Evaluation: 10:00 - Subjective Subjective: discussed on rounds to d/c on po clinda for 10 more days with ENT follow up Objective - Vital Signs/Intake and Output Vital Signs (last 24 hours): Temp Pulse Resp BP Pulse Ox 98.0 F 67 20 126/83 96 05/17/18 07:19 05/17/18 07:19 05/17/18 07:19 05/17/18 07:19 05/17/18 07:19 Intake and Output: 05/17/18 05/17/18 06:59 18:59 Intake Total 660 340 Output Total 800 Balance -140 340 - Medications Medications: Current Medications Acetaminophen (Tylenol 325mg Tab) 650 mg PO Q12H PRN PRN Reason: Fever >100.4 F Last Admin: 05/16/18 19:46 Dose: 650 mg Acetaminophen/Codeine Phosphate (Tylenol/Codeine 300 Mg/30 Mg) 1 ea PO Q6H PRN PRN Reason: Pain, severe (8-10) Ciprofloxacin (Cipro 400mg/200ml Dsw) 400 mg in 200 mls @ 133 mls/hr IVPB Q12H BUBBA PRN Reason: Protocol Last Admin: 05/17/18 07:57 Dose: 133 mls/hr Clindamycin Phosphate 900 mg/ (Sodium Chloride) 106 mls @ 106 mls/hr IVPB Q8H BUBBA PRN Reason: Protocol Last Admin: 05/17/18 06:00 Dose: 106 mls/hr Saccharomyces Boulardii (Florastor) 250 mg PO BID [facility] Last Admin: 05/17/18 11:20 Dose: 250 mg - Labs Labs: 05/17/18 07:16 05/17/18 07:16 PT 13.3 SECONDS (9.7-12.2) H 05/14/18 17:53 INR 1.2 05/14/18 17:53 APTT 34 SECONDS (21-34) 05/14/18 17:53 - Constitutional Appears: Well - Head Exam Head Exam: ATRAUMATIC, NORMAL INSPECTION, NORMOCEPHALIC - Eye Exam Eye Exam: EOMI, Normal appearance, PERRL Pupil Exam: NORMAL ACCOMODATION, PERRL - ENT Exam ENT Exam: Mucous Membranes Moist, Normal Exam - Neck Exam Neck Exam: Full ROM, Normal Inspection. absent: Lymphadenopathy - Respiratory Exam Respiratory Exam: Clear to Ausculation Bilateral, NORMAL BREATHING PATTERN - Cardiovascular Exam Cardiovascular Exam: REGULAR RHYTHM, +S1, +S2. absent: Murmur - GI/Abdominal Exam GI & Abdominal Exam: Soft, Normal Bowel Sounds. absent: Tenderness - Rectal Exam Rectal Exam: NORMAL INSPECTION - Exam Exam: Circumcision, NORMAL INSPECTION - Extremities Exam Extremities Exam: Full ROM, Normal Capillary Refill, Normal Inspection. absent : Joint Swelling, Pedal Edema - Back Exam Back Exam: NORMAL INSPECTION - Neurological Exam Neurological Exam: Alert, Awake, CN II-XII Intact, Normal Gait, Oriented x3 - Psychiatric Exam Psychiatric exam: Normal Affect, Normal Mood - Skin Skin Exam: Dry, Intact, Normal Color, Warm Assessment and Plan (1) Mastoiditis of right side Status: Acute (2) Otitis media of right ear Status: Acute
--- NOTE | 2018-05-17 16:41 | CP.PCM.DIS ---
<Helen Michaels P - Last Filed: 05/17/18 23:25> Provider - Provider Date of Admission: 05/16/18 11:19 Attending physician: Marlene Urrutia DO Time Spent in preparation of Discharge (in minutes): 45 Diagnosis - Discharge Diagnosis (1) Mastoiditis of right side Status: Acute Hospital Course - Lab Results Lab Results: Micro Results 05/15/18 21:24 Ear Middle Fluid Gram Stain - Final 05/15/18 21:24 Ear Middle Fluid Body Fluid Culture - Final Streptococcus Pyogenes Grp A 05/14/18 20:00 Blood-Venous Blood Culture - Preliminary NO GROWTH AFTER 48 HOURS 05/14/18 19:30 Blood-Venous Blood Culture - Preliminary NO GROWTH AFTER 48 HOURS 05/14/18 21:25 Ear - Right Gram Stain - Final 05/14/18 21:25 Ear - Right Ear Culture - Final Streptococcus Pyogenes Grp A 05/14/18 21:25 Throat Group A Strep Throat Culture - Final NO BETA STREP GROUP A ISOLATED. Most Recent Lab Values WBC 7.4 K/uL (4.8-10.8) 05/17/18 07:16 RBC 4.56 Mil/uL (4.40-5.90) 05/17/18 07:16 Hgb 13.9 g/dL (12.0-18.0) 05/17/18 07:16 Hct 41.4 % (35.0-51.0) 05/17/18 07:16 MCV 90.7 fL (80.0-94.0) 05/17/18 07:16 MCH 30.6 pg (27.0-31.0) 05/17/18 07:16 MCHC 33.7 g/dL (33.0-37.0) 05/17/18 07:16 RDW 14.0 % (11.5-14.5) 05/17/18 07:16 Plt Count 379 K/uL (130-400) 05/17/18 07:16 MPV 8.2 fL (7.2-11.7) 05/17/18 07:16 Neut % (Auto) 65.6 % (50.0-75.0) 05/17/18 07:16 Lymph % (Auto) 23.4 % (20.0-40.0) 05/17/18 07:16 Shasta % (Auto) 7.3 % (0.0-10.0) 05/17/18 07:16 Eos % (Auto) 3.0 % (0.0-4.0) 05/17/18 07:16 Baso % (Auto) 0.7 % (0.0-2.0) 05/17/18 07:16 Neut # (Auto) 4.9 K/uL (1.8-7.0) 05/17/18 07:16 Lymph # (Auto) 1.7 K/uL (1.0-4.3) 05/17/18 07:16 Shasta # (Auto) 0.5 K/uL (0.0-0.8) 05/17/18 07:16 Eos # (Auto) 0.2 K/uL (0.0-0.7) 05/17/18 07:16 Baso # (Auto) 0.1 K/uL (0.0-0.2) 05/17/18 07:16 PT 13.3 SECONDS (9.7-12.2) H 05/14/18 17:53 INR 1.2 05/14/18 17:53 APTT 34 SECONDS (21-34) 05/14/18 17:53 Sodium 138 mmol/L (132-148) 05/17/18 07:16 Potassium 4.2 mmol/L (3.6-5.2) 05/17/18 07:16 Chloride 105 mmol/L (98-107) 05/17/18 07:16 Carbon Dioxide 23 mmol/L (22-30) 05/17/18 07:16 Anion Gap 14 (10-20) 05/17/18 07:16 BUN 15 mg/dL (9-20) 05/17/18 07:16 Creatinine 0.8 mg/dL (0.8-1.5) 05/17/18 07:16 Est GFR ( Amer) > 60 05/17/18 07:16 Est GFR (Non-Af Amer) > 60 05/17/18 07:16 Random Glucose 98 mg/dL (75-110) 05/17/18 07:16 Calcium 9.6 mg/dl (8.6-10.4) 05/17/18 07:16 Phosphorus 4.0 mg/dL (2.5-4.5) 05/17/18 07:16 Magnesium 1.9 mg/dL (1.6-2.3) 05/17/18 07:16 Total Bilirubin 0.9 mg/dL (0.2-1.3) 05/17/18 07:16 AST 28 U/L (17-59) 05/17/18 07:16 ALT 27 U/L (21-72) 05/17/18 07:16 Alkaline Phosphatase 96 U/L (38-126) 05/17/18 07:16 Total Protein 7.4 g/dL (6.3-8.3) 05/17/18 07:16 Albumin 3.9 g/dL (3.5-5.0) 05/17/18 07:16 Globulin 3.5 gm/dL (2.2-3.9) 05/17/18 07:16 Albumin/Globulin Ratio 1.1 (1.0-2.1) 05/17/18 07:16 HIV 1&2 Antibody Screen Negative (NEGATIVE) 05/14/18 19:51 - Hospital Course Hospital Course: HPI (As per admission): Mr Lowe is a 52 year old male with no past medical history (due to not seeing a PMD) who presents with right sided ear pain that began 5 days ago. Patient stated he's had right sided ear infections in the past, especially in his youth, which self-resolved or resolved with abx. He said 5 days ago he woke up with sharp pain and later that day he noticed some clear liquid draining from his right ear. The following day he noticed a small amount of blood. His girlfriend gave him 3 tablets of an unknown abx which the patient took. The patient had a fever 3 days ago for which he took ibuprofen which resolved his fever. The pain has become progressively worse now 10/10. He also said he had decreased hearing in the right ear and tinnitus. Denied dizziness, disequilibrium, n/v, neck pain, eye abnormalities, mouth pain. Hospital course: Pt was was evaluated for R ear pain and fever. An inner auditory canal CT showed R otomastoiditis. Pt was treated with Cirprofloxacin 400mg in 200mls @ 133 mls/hr IVPB Q12H and Clindamycin Phosphate 900mg in 106mls @ 106 mls/hr IVPB Q8H. Dr. Billings (ENT) was consulted and performed a tympanostomy tube placement on the Right. Patient tolerated procedure well. Dr. Mathews (ID) was consulted and recommended pt be discharged on Clindamycin. Pt remained stable throughout hospitalization. Pt is cleared to be discharged home by medical team and consultants. Patient discharged with the following medication: Clindamycin 300mg PO QID for 10 days and Bacid 1 Tab PO BID for 30 days. Pt instructed to replace Bacid with yogurt if he could not afford probiotic. Pt instructed to follow up with ENT Dr. Ramos and either the [facility] or [facility]. Pt instructed to return to ED if experiences pain over ear or mandible. Pertinent imaging: CT internal auditory canal: Right otomastoiditis without definite cholesteatoma appreciated. The right ossicular chain is intact. Limited coalescence of a few air cells within the right mastoid air cell complex is suggested superoposteriorly. The left temporal bone CT sections appear normal throughout. CXR pre-op: * Mild right basilar atelectasis. Small right pleural effusion. This is a brief summary of events. For a complete course, please refer to the medical records. Discharge Exam - Head Exam Head Exam: ATRAUMATIC, NORMAL INSPECTION, NORMOCEPHALIC - ENT Exam Additional comments: Right ear: minimal amount of serous discharge noted. Non-tender to palpation. Left ear: Non-tender to palpation, no lesions or discharge noted. There is no swelling or tenderness to palpation over mastoid bilaterally or mandible. - Respiratory Exam Respiratory Exam: absent: Rales, Rhonchi, Wheezes - Cardiovascular Exam Cardiovascular Exam: RRR, +S1, +S2. absent: Systolic Murmur - GI/Abdominal Exam GI & Abdominal Exam: Normal Bowel Sounds, Soft. absent: Tenderness Discharge Plan - Discharge Medications Prescriptions: Acidoph/L.bulg/Bif.b/S.thermop [Bacid Probiotic 5%-80%-10%-5%] 1 tab PO DAILY # 30 tab RX: Clindamycin [Cleocin] 300 mg PO Q6H #40 cap - Follow Up Plan Condition: STABLE Disposition: HOME/ ROUTINE Instructions: Ear Infections (Otitis Media) (DC), Mastoiditis (DC) Additional Instructions: Please discharge patient to home as per Dr. Urrutia. Please take the following medications: 1) Clindamycin 300mg PO QID (40 tabs/0 refills)-Please take 1 tablet every 6 hours ( 4 tablets per day) for 10 days 2) Bacid 1 tab PO daily (30 days/0)- If you are unable to obtain Bacid tablet, you may take yogurt (over the counter) inbetween antibiotic doses, which will help with abdominal upset. Please follow up with [facility] or [facility]; [phone] or [phone] within a week of discharge in order to establish primary care. Please follow up with ENT specialist Dr. Ramos , office located at [address] [place] [address] within one week of discharge. If you experience pain over the ear or jaw, return to Emergency Room or ENT for evaluation. Referrals: [facility] [Provider Group] Karl Ramos MD [Medical Doctor] - <Marlene Urrutia V - Last Filed: 05/18/18 07:18> Provider - Provider Date of Admission: 05/16/18 11:19 Attending physician: Marlene Urrutia DO Diagnosis - Discharge Diagnosis (1) Mastoiditis of right side Status: Acute (2) Otitis media of right ear Status: Acute Priority: High (3) Prophylactic measure Status: Acute Priority: Low Hospital Course - Lab Results Lab Results: Micro Results 05/14/18 20:00 Blood-Venous Blood Culture - Preliminary NO GROWTH AFTER 3 DAYS 05/14/18 19:30 Blood-Venous Blood Culture - Preliminary NO GROWTH AFTER 3 DAYS 05/15/18 21:24 Ear Middle Fluid Gram Stain - Final 05/15/18 21:24 Ear Middle Fluid Body Fluid Culture - Final Streptococcus Pyogenes Grp A 05/14/18 21:25 Ear - Right Gram Stain - Final 05/14/18 21:25 Ear - Right Ear Culture - Final Streptococcus Pyogenes Grp A 05/14/18 21:25 Throat Group A Strep Throat Culture - Final NO BETA STREP GROUP A ISOLATED. Most Recent Lab Values WBC 7.4 K/uL (4.8-10.8) 05/17/18 07:16 RBC 4.56 Mil/uL (4.40-5.90) 05/17/18 07:16 Hgb 13.9 g/dL (12.0-18.0) 05/17/18 07:16 Hct 41.4 % (35.0-51.0) 05/17/18 07:16 MCV 90.7 fL (80.0-94.0) 05/17/18 07:16 MCH 30.6 pg (27.0-31.0) 05/17/18 07:16 MCHC 33.7 g/dL (33.0-37.0) 05/17/18 07:16 RDW 14.0 % (11.5-14.5) 05/17/18 07:16 Plt Count 379 K/uL (130-400) 05/17/18 07:16 MPV 8.2 fL (7.2-11.7) 05/17/18 07:16 Neut % (Auto) 65.6 % (50.0-75.0) 05/17/18 07:16 Lymph % (Auto) 23.4 % (20.0-40.0) 05/17/18 07:16 Shasta % (Auto) 7.3 % (0.0-10.0) 05/17/18 07:16 Eos % (Auto) 3.0 % (0.0-4.0) 05/17/18 07:16 Baso % (Auto) 0.7 % (0.0-2.0) 05/17/18 07:16 Neut # (Auto) 4.9 K/uL (1.8-7.0) 05/17/18 07:16 Lymph # (Auto) 1.7 K/uL (1.0-4.3) 05/17/18 07:16 [place]asta # (Auto) 0.5 K/uL (0.0-0.8) 05/17/18 07:16 Eos # (Auto) 0.2 K/uL (0.0-0.7) 05/17/18 07:16 Baso # (Auto) 0.1 K/uL (0.0-0.2) 05/17/18 07:16 PT 13.3 SECONDS (9.7-12.2) H 05/14/18 17:53 INR 1.2 05/14/18 17:53 APTT 34 SECONDS (21-34) 05/14/18 17:53 Sodium 138 mmol/L (132-148) 05/17/18 07:16 Potassium 4.2 mmol/L (3.6-5.2) 05/17/18 07:16 Chloride 105 mmol/L (98-107) 05/17/18 07:16 Carbon Dioxide 23 mmol/L (22-30) 05/17/18 07:16 Anion Gap 14 (10-20) 05/17/18 07:16 BUN 15 mg/dL (9-20) 05/17/18 07:16 Creatinine 0.8 mg/dL (0.8-1.5) 05/17/18 07:16 Est GFR ( Amer) > 60 05/17/18 07:16 Est GFR (Non-Af Amer) > 60 05/17/18 07:16 Random Glucose 98 mg/dL (75-110) 05/17/18 07:16 Calcium 9.6 mg/dl (8.6-10.4) 05/17/18 07:16 Phosphorus 4.0 mg/dL (2.5-4.5) 05/17/18 07:16 Magnesium 1.9 mg/dL (1.6-2.3) 05/17/18 07:16 Total Bilirubin 0.9 mg/dL (0.2-1.3) 05/17/18 07:16 AST 28 U/L (17-59) 05/17/18 07:16 ALT 27 U/L (21-72) 05/17/18 07:16 Alkaline Phosphatase 96 U/L (38-126) 05/17/18 07:16 Total Protein 7.4 g/dL (6.3-8.3) 05/17/18 07:16 Albumin 3.9 g/dL (3.5-5.0) 05/17/18 07:16 Globulin 3.5 gm/dL (2.2-3.9) 05/17/18 07:16 Albumin/Globulin Ratio 1.1 (1.0-2.1) 05/17/18 07:16 HIV 1&2 Antibody Screen Negative (NEGATIVE) 05/14/18 19:51 Attending/Attestation - Attestation I have personally seen and examined this patient.: Yes I have fully participated in the care of the patient.: Yes I have reviewed all pertinent clinical information, including history, physical exam and plan: Yes Notes (Text): Patient seen, examined, case discussed with medical record transcriber. Patient reports he is feeling well denies any acute complaints of pain. Case discussed with ENT patient is stable from their standpoint to leave the hospital defers to infectious disease for by mouth antibiotics on discharge. Case discussed with infectious disease recommends clindamycin 300 mg by mouth 4 times a day to complete a total 14 day course. And recommends outpatient ENT follow-up. Patient is medically stable for discharge patient recommended follow-up to either [facility] in [place] or [place]. Patient provided phone number of ENT to follow-up. Patient provided prescriptions for antibiotic and probiotic. Patient advised if he has any pain to be evaluated immediately by ENT or emergency room. Please use my physical exam of the same date May 17. This is a summary of patient's hospitalization please refer to EMR for full details of record. Discharge Diagnoses (1) Mastoiditis of right side Assessment & Plan: Assessment and Plan: * ENT consult, Dr Billings, on consult help appreciated * ID consult, Dr Mathews, on consult help appreciated Imaging: * CT internal auditory canal: Right otomastoiditis without definite cholesteatoma appreciated. The right ossicular chain is intact. Limited coalescence of a few air cells within the right mastoid air cell complex is suggested superoposteriorly. The left temporal bone CT sections appear normal throughout. CXR pre-op: * Mild right basilar atelectasis. Small right pleural effusion. * Operative Note (05/15/18): Right myringotomy with tubes: significant finding: fluid noted behind TM Meds: * Tylenol 650mg q12h prn for fever * Tylenol/codeine 1 tab po q6h prn for severe pain * Clindamycin 900mg IVPB q8h (active since 05/14/2018) * Ciprofloxacin 400 mg IV every 12 hours (active since 05/14/2018) * Florastor 250mg po bid Upon discharge: 1) Clindamycin 300mg PO QID (40 tabs/0 refills) 2) Bacid 1 tab PO daily (30 days/0) Patient recommended to establish care at the [facility] in [place] ([phone]) or in [place] ([phone]) and to follow-up ENT as outpatient. Patient recommend [facility] (ENT: Dr. Ramos ). If patient has pain over the ear,to come be evaluated by ENT and emergency room.. Status: Acute (2) Otitis media of right ear Status: Acute (3) Prophylactic measure Status: Acute
[2018-05-17 17:21] VITALS: BP 110/72; PULSE 71; TEMP 97.7; O2SAT 97
--- NOTE | 2018-05-17 18:03 | CARD ---
APPROVED REPORT EKG Measurement Heart [id number] <Conclusion> Normal sinus rhythm Incomplete right bundle branch block Borderline ECG
== END 2018-05-17 18:49 | disposition home or self-care (01) | DRG 133 ==
LOC: C.ER 11:07 → C.9E 17:20 → C.3T 18:04 → OBSVTOIN 05-16 11:19 → C.3T 05-16 22:01
PROVIDERS: ADMIT Internal Medicine; ATTEND Hospitalist
PROC: 099500Z Drainage of Right Middle Ear with Drainage Device, Open Approach (ICD-10-PCS; principal; 2018-05-15 07:30)
DX: H70.001 Acute mastoiditis without complications, right ear (principal); H66.91 Otitis media, unspecified, right ear; H93.11 Tinnitus, right ear; J34.2 Deviated nasal septum; J98.11 Atelectasis

== ENCOUNTER 2018-06-03 10:25 | Emergency (ER) | payer MEDICAID, OTHER ==
[2018-06-03 10:35] VITALS: BP 133/96; PULSE 76; RESP 16; TEMP 97.9; O2SAT 100
--- NOTE | 2018-06-03 11:06 | C.PDOC ---
History Of Present Illness 52 y/o male presents to the ER for evaluation of purulent drainage from right ear following recent discharge from [facility] s/p mastoiditis and placement of drainage tubes by Dr. Billings. Patient states that he was instructed to follow up with and the medical clinic. However, he did not follow up as he was instructed to do so. Denies having ear pain, fever, chills, headache, and neck pain. Time Seen by Provider: 06/03/18 10:36 Chief Complaint (Nursing): ENT Problem History Per: Patient History/Exam Limitations: None Onset/Duration Of Symptoms: Days Current Symptoms Are (Timing): Still Present Severity: Moderate Past Medical History Reviewed: Historical Data, Nursing Documentation, Vital Signs Vital Signs: Last Vital Signs Temp 97.9 F 06/03/18 10:33 Pulse 76 06/03/18 10:33 Resp 16 06/03/18 10:33 BP 133/96 H 06/03/18 10:33 Pulse Ox 100 06/03/18 12:03 - Medical History PMH: No Chronic Diseases Denies: Chronic Kidney Disease Other Surgeries: Hx of surgeries - [facility] Procedures DRAINAGE OF RIGHT MIDDLE EAR WITH DRAIN DEV, OPEN APPROACH (05/16/18) Family History: States: No Known Family Hx - Social History Hx Alcohol Use: No Hx Substance Use: No - Immunization History Hx Tetanus Toxoid Vaccination: No Hx Influenza Vaccination: No Hx Pneumococcal Vaccination: No Review Of Systems Except As Marked, All Systems Reviewed And Found Negative. Constitutional: Negative for: Fever, Chills ENT: Positive for: Other (drainage from right ear). Negative for: Ear Pain Musculoskeletal: Negative for: Neck Pain Neurological: Negative for: Headache Physical Exam - Physical Exam Appears: Non-toxic, No Acute Distress, Other (awake, alert) Skin: Normal Color, Warm, Dry Head: Atraumatic, Normacephalic Eye(s): bilateral: Normal Inspection Ear(s): Left: Normal, Right: Other (drainage from ear, TM and drainage tubes are not visible) Nose: Normal Oral Mucosa: Moist Throat: Normal, No Erythema, No Exudate Neck: Supple Chest: Symmetrical Cardiovascular: Rhythm Regular Respiratory: Normal Breath Sounds, No Rales, No Rhonchi, No Wheezing Gastrointestinal/Abdominal: Normal Exam, Soft, No Tenderness, No Guarding, No Rebound Neurological/Psych: Oriented x3, Normal Speech ED Course And Treatment O2 Sat by Pulse Oximetry: 100 (RA) Pulse Ox Interpretation: Normal Medical Decision Making Medical Decision Making: Case discussed with . Patient has been discharged and instructed to follow up with in his office today. Disposition - Disposition Referrals: Estiven Billings MD [Staff Provider] - [facility] at [facility] [Outside] Disposition: HOME/ ROUTINE Disposition Time: 11:03 Condition: STABLE Instructions: Mastoiditis Forms: Gen Discharge Inst Estonian, [employer] (Estonian) - POA Present On Arrival: None - Clinical Impression Clinical Impression: Mastoiditis of right side - Scribe Statement The provider has reviewed the documentation as recorded by the Foster Clemons Provider Attestation: All medical record entries made by the Marcioibanam were at my direction and personally dictated by me. I have reviewed the chart and agree that the record accurately reflects my personal performance of the history, physical exam, medical decision making, and the department course for this patient. I have also personally directed, reviewed, and agree with the discharge instructions and disposition.
== END 2018-06-03 11:10 | disposition home or self-care (01) ==
LOC: C.ER 10:25
DX: H70.91 Unspecified mastoiditis, right ear (principal)